=== PATIENT | female | born 1960 | race Caucasian/White ===

== ENCOUNTER 2016-12-02 18:54 | Emergency (ER) | payer BC ==
[~2016-12-02] VITALS: Ht 175.3 cm; Wt 72.2 kg
[~2016-12-02 18:54] MED LIST: ASACOL 400400 MG/TAB PO; BIRTH CONTROL; CIPRO 100MG TA100 MG PO; ENJUVIA0.3 MG PO; FLAGYL; PREVACID 15MG15 M1; [UNRECOGNIZED DRUG - OTHER]
[2016-12-02 18:58] VITALS: TEMP 98
[2016-12-02 19:46] LABS: PH 6 (5-8); SQUAMOUS EPITHELIAL 0-2 /hpf; URINE APPEARANCE Clear; URINE BACTERIA None Seen /hpf; URINE BILIRUBIN Negative (NEGATIVE); URINE BLOOD Negative (NEGATIVE); URINE COLOR Straw; URINE GLUCOSE Negative (NEGATIVE); URINE KETONE Negative (NEGATIVE); URINE RBC 0-2 /hpf; URINE UROBILINOGEN Negative (NEGATIVE); URINE WBC 0-2 /hpf
[2016-12-02 20:07] LABS: BASO % 0.3 % (0.0-2.0); EOS # 0.2 (0.0-0.7); EOS % 2.8 % (0-4.0); GRAN # 3.4 (1.4-6.5); GRAN % 53.7 % (42.2-75.2); HEMATOCRIT 39.5 % (37.0-47.0); HEMOGLOBIN 13.4 g/dl (12.5-16.0); LYMPH # 2.2 (1.2-3.4); LYMPH % 34.5 % (20.0-51.0); MEAN CELL VOLUME 96 fl (80.0-100.0); MEAN CORPUSCULAR HEMOGLOBIN 32 pg (27.0-31.0); MEAN CORPUSCULAR HGB CONC 34 g/dl (33.0-37.0); MEAN PLATELET VOLUME 9.6 fl (7.4-10.4); MONO # 0.5 (0.1-0.6); MONO % 8.2 % (1.7-9.3); PLATELET COUNT 199 K/mm3 (130-400); RED BLOOD COUNT 4.13 M/mm3 (4.10-5.30); REDCELL DISTRIBUTION WIDTH-CV 13.3 % (11.5-14.5); WHITE BLOOD COUNT 6.4 K/mm3 (4.8-10.8)
[2016-12-02 20:17] LABS: ADJUSTED CALCIUM 9.1 mg/dL (8.4-10.2); ALANINE AMINOTRANSFERASE 22 U/L (9-52); ALBUMIN 4.4 gm/dL (3.5-5.0); ALKALINE PHOSPHATASE 57 U/L (50-136); ANION GAP 9 mmol/L (7-16); BILIRUBIN,TOTAL 0.4 mg/dL (0.0-1.0); BLOOD UREA NITROGEN 12 mg/dL (7-17); CALCIUM 9.4 mg/dL (8.4-10.2); CARBON DIOXIDE 26 mmol/L (22-30); CHLORIDE 101 mmol/L (98-107); CREATININE, serum 0.78 mg/dL (0.52-1.25); GLUCOSE 81 mg/dL (74-106); LIPASE 104 U/L (23-300); POTASSIUM 3.6 mmol/L (3.4-5.0); SODIUM 136 mmol/L (137-145); TOTAL PROTEIN 7.5 gm/dL (6.4-8.2)
[2016-12-02 20:18] LABS: C-REACTIVE PROTEIN < 0.5 mg/dL (0.0-0.9)
[2016-12-02 21:13] VITALS: BP 124/77; PULSE 68
== END 2016-12-02 21:15 | disposition home or self-care (01) ==
LOC: COL.ER 18:54
PROVIDERS: Family Medicine
DX: M54.5 Low back pain (principal); Z87.19 Personal history of other diseases of the digestive system
CPT/HCPCS: J2270; J7030

== ENCOUNTER → 2018-12-24 | Outpatient (CLI) | payer BC ==
[~2018-12-24] MED LIST changes: +AMOXICILLIN 8751 TAB PO; +COLACE 100100 MG/CAP PO; +DELZICOL PO; +ENTOCORT EC3 MG PO; +FLONASE NASAL S16 GM NS; +MOTRIN 600600 MG/TAB PO; +NEURONTIN600 MG/TAB PO; +PERCOCET 325 MG1 TA2 PO; +RESTORIL 1515 MG/CAP PO; +SINGULAIR 110 MG/TAB PO; +SPIRIVA RE2.5 MCG/Ac IH; +VITAMIN D 50,1.25 MG PO; +ZANTAC 300300 MG PO
== END ==
LOC: COL.RAD 10:26
DX: M79.671 Pain in right foot (principal)
CPT/HCPCS: J3301; Q9967

== ENCOUNTER → 2020-09-30 | Outpatient (CLI) | payer BC | LOC: COL.RAD 12:54 | DX: M79.672 Pain in left foot (principal); M79.671 Pain in right foot | CPT/HCPCS: J3301; Q9967 ==

== ENCOUNTER → 2021-05-16 | Outpatient (CLI) | payer BC | LOC: MC.RAD 11:45 | DX: Z12.31 Encounter for screening mammogram for malignant neoplasm of breast (principal) ==

== ENCOUNTER → 2023-05-03 | Outpatient (CLI) | payer BC | LOC: MC.RAD 13:43 | DX: Z12.31 Encounter for screening mammogram for malignant neoplasm of breast (principal) ==